=== PATIENT | male | born 2000 | race Two or more races ===

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

== ENCOUNTER 2020-12-20 14:30 | Emergency (ER) | payer SELFPAY ==
[~2020-12-20] VITALS: Ht 190.5 cm; Wt 131.5 kg
[2020-12-20 15:21] VITALS: BP 143/76
--- NOTE | 2020-12-20 15:25 | NUR ---
R 5TH FINGER PAIN S/P [facility] LAST MONDAY. DENIES PAIN. NO S/S POOR CIRCULATION NOTED. WILL CONTINUE TO MONITOR THE PATIENT.
== END 2020-12-20 15:58 | disposition home or self-care (01) ==
LOC: ER 14:30
DX: S63.696A Other sprain of right little finger, initial encounter (principal); W01.0XXA Fall on same level from slipping, tripping and stumbling without subsequent striking against object, initial encounter; Y93.89 Activity, other specified; Y92.091 Bathroom in other non-institutional residence as the place of occurrence of the external cause; Y99.8 Other external cause status
CPT/HCPCS: 73140-TC